=== PATIENT | male | born 1955 | race American Indian/Alaskan Native ===

== ENCOUNTER 2019-10-30 13:50 | Emergency (ER) | payer OTHER ==
--- NOTE | 2019-10-30 14:49 | EDPHYS ---
Physician Documentation [facility] Name: Twin Marinelli Age: 64 yrs Sex: Male : 1955 Arrival Date: 10/30/2019 Time: 13:53 Bed 24 Private MD: ED Physician Mandy Berger HPI: 10/29 14:41 This 64 yrs old Other Male presents to ER via Ambulatory with complaints of Wound cp Infection. 14:41 The patient or guardian reports non-healing wound. The complaints affect the dorsal cp aspect right hand. Context: resulted from injury while grilling 1 week ago. Associated signs and symptoms: Pertinent negatives: cyanosis distally, decreased sensation distally, fever. Historical: - Allergies: 14:07 No Known Allergies; ca1 - Home Meds: 14:07 None [Active]; ca1 - PMHx: 14:07 Aneurysm; ca1 - PSHx: 14:07 Brain Surgery; ca1 - Immunization history:: Adult Immunizations up to date. - Social history:: Smoking status: Patient denies any tobacco usage or history of. ROS: 14:43 Constitutional: Negative for body aches, chills, fever. cp 14:43 Skin: Positive for erythema, of the dorsum right hand, wound. 14:43 All other systems are negative. Exam: 14:45 Constitutional: The patient appears in no acute distress, alert, awake, non-toxic, well cp developed, well nourished. 14:45 Skin: large are of excoriated skin with honey colored drainage and mild erythema noted to dorsum right hand extending proximally to wrist, minimal swelling noted. Vital Signs: 14:01 BP 156 / 97; Pulse 78; Resp 15 S; Temp 97.8(TE); Pulse Ox 98% on R/A; Weight 81.65 kg ca1 (R); Height 5 ft. 8 in. (172.72 cm) (R); Pain 3/10; 14:13 BP 160 / 96; Pulse 80; Resp 18; Temp 98.0; Pulse Ox 97% ; Weight 83.91 kg; Height 5 ft. dh4 8 in. (172.72 cm); 14:13 Body Mass Index 28.13 (83.91 kg, 172.72 cm) dh4 MDM: 14:36 Patient medically screened. cp 14:46 Data reviewed: vital signs, nurses notes, and as a result, I will discharge patient. cp Counseling: I had a detailed discussion with the patient and/or guardian regarding: the historical points, exam findings, and any diagnostic results supporting the discharge/admit diagnosis, to return to the emergency department if symptoms worsen or persist or if there are any questions or concerns that arise at home. Administered Medications: 14:06 Drug: Tetanus-Diphtheria Toxoid Adult 0.5 ml {Looping Machine Operator: [facility]. Exp: ls4 06/23/2021. Lot #: [id number]. } Route: IM; Site: right deltoid; 15:25 Follow up: Response: No adverse reaction ls4 Disposition: 10/28 15:00 Chart complete. 10/29 16:13 Co-signature as Attending Physician, Mandy Berger MD. me2 Disposition: 10/30/19 14:48 Discharged to Home. Impression: Cellulitis of right upper limb - hand and wrist. - Condition is Stable. - Discharge Instructions: Cellulitis, Adult. - Prescriptions for Bactroban 2 % Topical Ointment - Apply to affected area 1 application by TOPICAL route every 12 hours apply to hand as directed; 45 gram. Doxycycline Hyclate 100 mg Oral Tablet - take 1 tablet by ORAL route every 12 hours; 20 tablet. - Medication Reconciliation Form, Thank You Letter, Antibiotic Education, Prescription Opioid Use form. - Follow up: Private Physician; When: 2 - 3 days; Reason: Worsening of condition. - Problem is new. - Symptoms are unchanged. Signatures: Gibran Morris PA PA cp Alzahri, Mohammad, MD MD me2 Mayela Velasquez RN RN ls4 Christie Castañeda RN RN [facility] Corrections: (The following items were deleted from the chart) 15:27 14:48 10/30/2019 14:48 Discharged to Home. Impression: Cellulitis of right upper limb - ls4 hand and wrist. Condition is Stable. Forms are Medication Reconciliation Form, Thank You Letter, Antibiotic Education, Prescription Opioid Use. Follow up: Private Physician; When: 2 - 3 days; Reason: Worsening of condition. Problem is new. Symptoms are unchanged. cp
--- NOTE | 2019-10-30 14:49 | ER ---
Nurse's Notes [facility] Name: Twin Marinelli Age: 64 yrs Sex: Male : 1955 Arrival Date: 10/30/2019 Time: 13:53 Bed 24 Private MD: Diagnosis: Cellulitis of right upper limb-hand and wrist Presentation: 10/29 14:01 Chief complaint: Patient states: I got this on my R hand, I thought it was poison Marily ca1 so I put Benadryl cream and calamine lotion. But it didn't get better. It tears and up has drainage. I also scraped it on a barbecue pit before this happened. So I don't really know what caused it. Denies fever. Coronavirus screen: Proceed with normal triage. Patient denies a cough. Patient denies shortness of breath or difficulty breathing. Patient denies measured and/or subjective temperature greater than 100.4F prior to today's visit. Patient denies travel on a cruise ship or to a country the [facility] currently lists as an affected area. Patient denies contact with known and/or suspected case of COVID-19. Ebola Screen: Patient negative for fever greater than or equal to 101.5 degrees Fahrenheit, and additional compatible Ebola Virus Disease symptoms Patient denies exposure to infectious person. Patient denies travel to an Ebola-affected area in the 21 days before illness onset. No symptoms or risks identified at this time. Initial Sepsis Screen: Does the patient meet any 2 criteria? No. Patient's initial sepsis screen is negative. Does the patient have a suspected source of infection? No. Patient's initial sepsis screen is negative. Risk Assessment: Do you want to hurt yourself or someone else? Patient reports no desire to harm self or others. Onset of symptoms was October 30, 2019. 14:01 Method Of Arrival: Ambulatory ca1 14:01 Acuity: DESMOND 4 ca1 Triage Assessment: 14:18 General: Appears in no apparent distress. comfortable, Behavior is calm, cooperative. ls4 Pain: Complains of pain in dorsal aspect of right forearm Pain currently is 3 out of 10 on a pain scale. Neuro: No deficits noted. Cardiovascular: No deficits noted. Respiratory: No deficits noted. Airway Respiratory effort is even, unlabored, Respiratory pattern is regular, Denies cough, shortness of breath labored breathing. GI: No deficits noted. No signs and/or symptoms were reported involving the gastrointestinal system. : No deficits noted. No signs and/or symptoms were reported regarding the genitourinary system. Derm: No deficits noted. No signs and/or symptoms reported regarding the dermatologic system. Musculoskeletal: No deficits noted. No signs and/or symptoms reported regarding the musculoskeletal system. Historical: - Allergies: 14:07 No Known Allergies; ca1 - Home Meds: 14:07 None [Active]; ca1 - PMHx: 14:07 Aneurysm; ca1 - PSHx: 14:07 Brain Surgery; ca1 - Immunization history:: Adult Immunizations up to date. - Social history:: Smoking status: Patient denies any tobacco usage or history of. Screenin:20 Abuse screen: Denies threats or abuse. Denies injuries from another. Nutritional ls4 screening: No deficits noted. Tuberculosis screening: No symptoms or risk factors identified. Fall Risk None identified. Assessment: 15:25 Reassessment: Patient appears in no apparent distress at this time. Patient and/or ls4 family updated on plan of care and expected duration. Pain level reassessed. Patient is alert, oriented x 3, equal unlabored respirations, skin warm/dry/pink. pt discharge held for clinical observation after IM tetanus shot. no reaction, pt tolerated well. Vital Signs: 14:01 BP 156 / 97; Pulse 78; Resp 15 S; Temp 97.8(TE); Pulse Ox 98% on R/A; Weight 81.65 kg ca1 (R); Height 5 ft. 8 in. (172.72 cm) (R); Pain 3/10; 14:13 BP 160 / 96; Pulse 80; Resp 18; Temp 98.0; Pulse Ox 97% ; Weight 83.91 kg; Height 5 ft. dh4 8 in. (172.72 cm); 14:13 Body Mass Index 28.13 (83.91 kg, 172.72 cm) 4 ED Course: 13:53 Patient arrived in ED. ag5 14:05 Triage completed. ca1 14:07 Arm band placed on right wrist. ca1 14:17 Mayela Velasquez RN is Primary Nurse. ls4 14:18 Gibran Morris PA is PHCP. cp 14:18 Mandy Berger MD is Attending Physician. cp 14:20 Patient has correct armband on for positive identification. Bed in low position. Call ls4 light in reach. Side rails up X 1. Pulse ox on. NIBP on. Warm blanket given. Diet:. 14:21 No provider procedures requiring assistance completed. ls4 15:27 Patient did not have IV access during this emergency room visit. ls4 Administered Medications: 14:06 Drug: Tetanus-Diphtheria Toxoid Adult 0.5 ml {Tire Balancer: [employer]. Exp: ls4 06/23/2021. Lot #: [id number]. } Route: IM; Site: right deltoid; 15:25 Follow up: Response: No adverse reaction ls4 Outcome: 14:48 Discharge ordered by . cp 15:26 Discharged to home ambulatory, with family. ls4 15:26 Condition: good 15:26 Discharge instructions given to patient, friend, Instructed on discharge instructions, follow up and referral plans. Demonstrated understanding of instructions, follow-up care, medications, Prescriptions given X 2. 15:27 Patient left the ED. ls4 Signatures: Gibran Morris PA PA cp Mayela eVlasquez, RN RN ls4 Christie Castañeda RN RN ca1 Negin, Loida [facility] D[facility] Corrections: (The following items were deleted from the chart) 14:06 14:01 Pulse 78bpm; Resp 15bpm; Spontaneous; Pulse Ox 98% RA; Temp 97.8F Temporal; 81.65 ca1 kg Reported; Height 5 ft. 8 in. Reported; BMI: 27.3; Pain 3/10; ca1 15:25 15:24 Tetanus-Diphtheria Toxoid Adult 0.5 ml IM in right deltoid Tire Balancer: [employer] ls4 [employer] Lot: [id number] Exp: 06/23/2021 ls4
[2019-10-30] MEDS ORDERED: TETANUS & DIPHTHERIA TOX,ADULT 0.5 ML VIAL ONE (15:05)
[2019-10-30 15:37] VITALS: BP 160/96; TEMP 98; O2SAT 97
== END 2019-10-30 15:27 | disposition home or self-care (01) ==
LOC: ER 13:50
DX: L03.113 Cellulitis of right upper limb (principal); Z23 Encounter for immunization
CPT/HCPCS: 90471; 90714; 99283

== ENCOUNTER 2019-11-05 15:17 | Emergency (ER) | payer OTHER ==
[2019-11-05] MEDS ORDERED: METHYLPREDNISOLONE 125 MG INJ ONE (16:06)
--- NOTE | 2019-11-05 16:15 | EDPHYS ---
Physician Documentation [facility] Name: Twin Marinelli Age: 64 yrs Sex: Male : 1955 Arrival Date: 11/05/2019 Time: 15:20 Bed 19 Private MD: ED Physician Kush Sutton HPI: 11/04 16:09 This 64 yrs old Other Male presents to ER via Ambulatory with complaints of possible rn Staph Infection, Itching. 16:09 The patient's rash thought to be caused by an unknown cause. The rash is located on the rn body diffusely. Onset: The symptoms/episode began/occurred. 16:09 The rash can be described as erythematous, papular, vesicular. Severity of symptoms: At rn their worst the symptoms were mild in the emergency department the symptoms are unchanged. The patient has experienced a previous episode. The patient has not recently seen a physician. Reports seen here earlier in week, told might have staph infection, reports rash has spread to ears/forehead/left arm/neck/left leg. Is wondering if he got poison marily again as itches and yeung. No fever. . Historical: - Allergies: 15:29 No Known Allergies; jl7 - Home Meds: 15:29 None [Active]; jl7 - PMHx: 15:29 Aneurysm; jl7 - PSHx: 15:29 Brain Surgery; jl7 - Immunization history:: Adult Immunizations up to date. - Social history:: Smoking status: Patient denies any tobacco usage or history of. - Family history:: not pertinent. - Hospitalizations: : No recent hospitalization is reported. ROS: 16:09 Constitutional: Negative for fever, chills, and weight loss, ENT: no oral swelling rn faculty: Negative for chest pain, palpitations, and edema, Respiratory: Negative for shortness of breath, cough, wheezing, and pleuritic chest pain, Abdomen/GI: Negative for abdominal pain, nausea, vomiting, diarrhea, and constipation, MS/Extremity: Negative for injury and deformity, Skin: + rash and itching Neuro: Negative for headache, weakness, numbness, tingling, and seizure. Exam: 16:09 Constitutional: This is a well developed, well nourished patient who is awake, alert, rn and in no acute distress. Skin: Warm, dry, + papular/partially pustular rash to right dorsum hand/forearm/forhead/bilaterla ears/left forearm/left leg, no bullae, no skin sloughing, + excoriations. Vital Signs: 15:27 BP 169 / 84; Pulse 61; Resp 17; Temp 97.9; Pulse Ox 100% ; Weight 83.91 kg; Height 5 jl7 ft. 8 in. (172.72 cm); Pain 0/10; 16:24 BP 147 / 90; Pulse 65; Resp 15 S; Pulse Ox 100% on R/A; ca1 15:27 Body Mass Index 28.13 (83.91 kg, 172.72 cm) jl7 MDM: 15:40 Patient medically screened. rn 16:09 Differential diagnosis: impetigo, cellulitis, dermatitis, poison marily. Data reviewed: rn vital signs, nurses notes, old medical records, and as a result, I will discharge patient. Counseling: I had a detailed discussion with the patient and/or guardian regarding: the historical points, exam findings, and any diagnostic results supporting the discharge/admit diagnosis, the need for outpatient follow up, to return to the emergency department if symptoms worsen or persist or if there are any questions or concerns that arise at home. Special discussion: I discussed with the patient/guardian in detail that at this point there is no indication for admission to the hospital. It is understood, however, that if the symptoms persist or worsen the patient needs to return immediately for re-evaluation. ED course: Given itchy and widespread location, unlikely local cellulitis, could be more dermatitis like from poison marily as states has had before and poison marily around house, and was working outside when began. . Administered Medications: 16:01 Drug: SOLU-Medrol 125 mg Route: IM; Site: left gluteus; ca1 16:23 Follow up: Response: No adverse reaction ca1 Disposition: 11/05/19 16:14 Discharged to Home. Impression: Dermatitis, unspecified. - Condition is Stable. - Discharge Instructions: Cellulitis, Adult, Poison Marily Dermatitis, Rash. - Prescriptions for Medrol ([place]) 4 mg Oral Tablets, Dose Pack - take 1 tablet by ORAL route as directed - follow package instructions; 1 packet. Bactrim DS 800- 160 mg Oral Tablet - take 1 tablet by ORAL route every 12 hours for 10 days; 20 tablet. - Medication Reconciliation Form, Thank You Letter, Antibiotic Education, Prescription Opioid Use form. - Follow up: Private Physician; When: As needed; Reason: Recheck today's complaints, Re-evaluation by your physician. - Problem is an ongoing problem. - Symptoms are unchanged. Signatures: Kush Sutton MD MD rn Leal, Jahala, RN RN jl7 Christie Castañeda RN RN ca1 Corrections: (The following items were deleted from the chart) 16:25 16:14 11/05/2019 16:14 Discharged to Home. Impression: Dermatitis, unspecified. ca1 Condition is Stable. Forms are Medication Reconciliation Form, Thank You Letter, Antibiotic Education, Prescription Opioid Use. Follow up: Private Physician; When: As needed; Reason: Recheck today's complaints, Re-evaluation by your physician. Problem is an ongoing problem. Symptoms are unchanged. rn
--- NOTE | 2019-11-05 16:15 | ER ---
Nurse's Notes [facility] Name: Twin Marinelli Age: 64 yrs Sex: Male : 1955 Arrival Date: 11/05/2019 Time: 15:20 Bed 19 Private MD: Diagnosis: Dermatitis, unspecified Presentation: 11/04 15:27 Chief complaint: Patient states: Came here on Wednesday and was dx with a staph infection jl7 on my right hand and it's spreading to my arm and forehead and it's very itchy. Coronavirus screen: Proceed with normal triage. Patient denies a cough. Patient denies shortness of breath or difficulty breathing. Patient denies measured and/or subjective temperature greater than 100.4F prior to today's visit. Patient denies travel on a cruise ship or to a country the [facility] currently lists as an affected area. Patient denies contact with known and/or suspected case of COVID-19. Ebola Screen: No symptoms or risks identified at this time. Initial Sepsis Screen: Does the patient meet any 2 criteria? No. Patient's initial sepsis screen is negative. Does the patient have a suspected source of infection? No. Patient's initial sepsis screen is negative. Risk Assessment: Do you want to hurt yourself or someone else? Patient reports no desire to harm self or others. Onset of symptoms was October 30, 2019. Care prior to arrival: None. 15:27 Method Of Arrival: Ambulatory jl7 15:27 Acuity: DESMOND 4 jl7 Triage Assessment: 15:29 General: Appears in no apparent distress. uncomfortable, Behavior is cooperative, jl7 appropriate for age, anxious. Pain: Denies pain. Historical: - Allergies: 15:29 No Known Allergies; jl7 - Home Meds: 15:29 None [Active]; jl7 - PMHx: 15:29 Aneurysm; jl7 - PSHx: 15:29 Brain Surgery; jl7 - Immunization history:: Adult Immunizations up to date. - Social history:: Smoking status: Patient denies any tobacco usage or history of. - Family history:: not pertinent. - Hospitalizations: : No recent hospitalization is reported. Screenin:36 Abuse screen: Denies threats or abuse. Denies injuries from another. Nutritional ca1 screening: No deficits noted. Tuberculosis screening: No symptoms or risk factors identified. Fall Risk None identified. Assessment: 15:36 General: Appears in no apparent distress. comfortable, Behavior is calm, cooperative, ca1 appropriate for age. Pain: Complains of pain in right arm Pain currently is 2 out of 10 on a pain scale. Quality of pain is described as itching Pain began 2 weeks ago. Neuro: Level of Consciousness is awake, alert, obeys commands, Oriented to person, place, time, situation. Derm: Skin is intact, is healthy with good turgor, Skin is pink, warm \T\ dry. Rash noted that is macular, red, raised, on right hand and right arm. Musculoskeletal: Circulation, motion, and sensation intact. Capillary refill < 3 seconds. 16:24 Reassessment: Patient appears in no apparent distress at this time. Patient is alert, ca1 oriented x 3, equal unlabored respirations, skin warm/dry/pink. Vital Signs: 15:27 BP 169 / 84; Pulse 61; Resp 17; Temp 97.9; Pulse Ox 100% ; Weight 83.91 kg; Height 5 jl7 ft. 8 in. (172.72 cm); Pain 0/10; 16:24 BP 147 / 90; Pulse 65; Resp 15 S; Pulse Ox 100% on R/A; ca1 15:27 Body Mass Index 28.13 (83.91 kg, 172.72 cm) jl7 ED Course: 15:20 Patient arrived in ED. ag5 15:29 Triage completed. jl7 15:29 Arm band placed on left wrist. jl7 15:36 Patient has correct armband on for positive identification. Bed in low position. Call ca1 light in reach. Side rails up X 1. Pulse ox on. NIBP on. 15:38 Christie Castañeda, TIFFANIE is Primary Nurse. ca1 15:40 Kush Sutton MD is Attending Physician. rn 16:02 No provider procedures requiring assistance completed. Patient did not have IV access ca1 during this emergency room visit. 16:23 Dressings: Kerlix X 1; right hand non-adherent dressing x 1 right hand 4X4s X 1; right ca1 hand. Administered Medications: 16:01 Drug: SOLU-Medrol 125 mg Route: IM; Site: left gluteus; ca1 16:23 Follow up: Response: No adverse reaction ca1 Outcome: 16:14 Discharge ordered by . rn 16:25 Discharged to home ambulatory. ca1 16:25 Condition: stable 16:25 Discharge instructions given to patient, Instructed on discharge instructions, follow up and referral plans. medication usage, wound care, Demonstrated understanding of instructions, follow-up care, medications, wound care, Prescriptions given X 2. 16:25 Patient left the ED. ca1 Signatures: Kush Sutton MD MD rn Leal, Jahala, RN RN jl7 Christie Castañeda RN RN ca1 Loida Kam ag5
[2019-11-05 16:42] VITALS: TEMP 97.9; O2SAT 100
[2019-11-05 16:43] VITALS: BP 147/90
== END 2019-11-05 16:25 | disposition home or self-care (01) ==
LOC: ER 15:17
DX: L30.9 Dermatitis, unspecified (principal)
CPT/HCPCS: 96372; 99283; J2930